=== PATIENT | male | born 1990 | race Caucasian/White ===

== ENCOUNTER 2024-04-05 18:08 | Emergency (ER) | payer OTHER, SELFPAY ==
[2024-04-05 18:09] VITALS: BP 124/89
[2024-04-05 18:26] VITALS: BP 131/83
[2024-04-05 18:45] LABS: % Basophils 0.8 % (0-2); % Eosinophils 2.7 % (0-6); % Immature Granulocytes 0.4 % (0-0.5); % Lymphocytes 16.5 % (20.5-51.1); % Monocytes 8.9 % (1.7-9.3); % Neutrophils 70.7 % (42.2-75.2); Absolute Eosinophils 0.1 10^3/uL (0-0.7); Absolute Lymphocytes 0.9 10^3/uL (1.2-3.4); Absolute Monocytes 0.5 10^3/uL (0.1-0.6); Absolute Neutrophils 3.7 10^3/uL (1.4-6.5); Hematocrit 37.9 % (39.0-52.0); Hemoglobin 13.9 g/dL (13.0-18.0); Mean Corp Hgb Conc. 36.7 g/dL (33.0-37.0); Mean Corpuscular Hgb 32.9 pg (27.0-31.0); Mean Corpuscular Volume 89.8 fL (80.0-94.0); Mean Platelet Volume 9.9 fL (7.4-10.4); Nucleated Red Blood Cells % 0 % (-); Platelet Count 153 10^3/uL (130-400); Red Blood Cell Count 4.22 10^6/uL (4.70-6.10); Red Cell Dist. Width 11.6 % (11.5-14.5); White Blood Cell Count 5.3 10^3/uL (4.8-10.8)
[2024-04-05 18:57] LABS: ALT (SGPT) 55 U/L (0-50); AST (SGOT) 67 U/L (17-59); Albumin 4.8 g/dl (3.5-5.0); Alkaline Phosphatase 95 U/L (38-126); Blood Urea Nitrogen 10 mg/dl (9-20); Calcium 9.2 mg/dl (8.4-10.2); Carbon Dioxide 19 mmol/L (22-30); Chloride 103 mmol/L (98-107); Glucose 91 mg/dl (70-99); Potassium 4.1 mmol/L (3.5-5.1); Sodium 136 mmol/L (135-145); Total Bilirubin 0.6 mg/dl (0.2-1.3); Total Protein 7.9 g/dl (6.3-8.2); eGFR > 60.00
[2024-04-05 19:00] VITALS: BP 131/82
[2024-04-05 20:00] VITALS: BP 145/89
[2024-04-05 21:00] VITALS: BP 130/107
--- NOTE | 2024-04-05 23:37 | ED.GENMED ---
History of Present Illness
General
Chief Complaint: Seizure
Source: patient, significant other and family
Exam Limitations: none
Time Seen by Provider: 04/05/24 18:19
Nursing documentation reviewed up to this point in time: agreed with
Travel History
Have you had any contact with someone who has COVID-19?: No
Do you have any symptoms of coronavirus? Fever > 100 degrees, chills, cough, shortness of breath, sore throat, loss of taste or smell, muscle aches, or headache?: No
History of Present Illness
History of Present Illness:
33-year-old male with a past medical history of seizures presents to the emergency room with his mother and girlfriend for evaluation after seizure. Patient reportedly was in the shower and girlfriend heard him fall and found him sitting in the
shower hanging over the edge of the tub. She says that he was having tonic-clonic activity and had some bleeding around his mouth. She says that the whole episode lasted about 3 minutes and afterwards he was lethargic. He since has returned to
baseline�he initially in triage had a mild headache but he says this has resolved and he now feels well with no complaints. He denies any recent illness. Denies any headache or neck pain for me. Denies any chest or abdominal pain. He says this
is typical of his seizure episodes. He admits that he has not been taking his Keppra as he is supposed to�he says that he supposed to take 750 mg twice daily but over the past few days has not taken it, he claims he forgot. Triage note mentions
something about cutting pills in half�he says that he simply missed a few doses. His last seizure was in October 2022.
Review of Systems
Review of Systems
All Other Systems: ROS reviewed and negative except as documented in HPI and ROS
Constitutional: Denies fever or chills
Respiratory: Denies trouble breathing
Cardiac: Denies chest pain
ABD/GI: Denies abdominal pain, nausea or vomiting
: Denies flank pain
Musculoskeletal: Denies neck pain or back pain
Neurological: Denies dizzy, headache, weakness or numbness
Phy Exam
Physical Exam
Physical Exam:
General: Awake, alert, oriented x3; no acute distress
Head: Normocephalic, atraumatic
Eyes: Conjunctiva normal, EOMI, pupils equal round and reactive to light bilateral
Throat: Airway intact, handling secretions, minor abrasion/bite ria on the left side of the tongue
Neck: Trachea midline, supple without meningismus
Lungs: Clear to auscultation bilaterally, no wheezing, rales, rhonchi
Heart: Regular rate and rhythm, no murmurs, gallops, or rubs�triage tachycardia improved by my assessment
Abd: Soft, non distended, nontender
Neuro: Cranial nerves intact, speech fluid without dysarthria, no motor or sensory dysfunction
Skin: no rash
Extremities: No edema in extremities, equal pulses in all extremities
Scores
Heart Failure Risk
Heart Failure Risk Score: Not Applicable
Heart Score for Chest Pain Patients
STEMI patient?: Not applicable
Withdrawal Assessment of Alcohol
Withdrawal Assessment Completed?: Not applicable
Course
Orders/Labs/Results
Orders:
Orders
04/05/24 18:13
EKG [Electrocardiogram (*1)] Urgent
Reason for Study: Tachycardia
EKG- Treatment ONCE
04/05/24 18:28
Complete Blood Count/With Diff Urgent
Comprehensive Metabolic Panel Urgent
Abnormal Lab Results
04/05/24
18:28
RBC 4.22 L 10^6/uL
(4.70-6.10)
Hct 37.9 L %
(39.0-52.0)
MCH 32.9 H pg
(27.0-31.0)
Absolute Lymphs (auto) 0.9 L 10^3/uL
(1.2-3.4)
Lymphocytes % 16.5 L %
(20.5-51.1)
Carbon Dioxide 19 L mmol/L
(22-30)
AST 67 H U/L
(17-59)
ALT 55 H U/L
(0-50)
04/05/24 18:28
04/05/24 18:28
Vital Signs
Initial and Last Documented VS:
Initial Vital Signs
Temp Pulse Resp BP Pulse Ox
36.8 C 121 18 124/89 97
04/05/24 18:09 04/05/24 18:09 04/05/24 18:09 04/05/24 18:09 04/05/24 18:09
Last Documented Vital Signs
Temp Pulse Resp BP Pulse Ox
36.8 C 103 18 130/107 96
04/05/24 18:09 04/05/24 21:15 04/05/24 21:15 04/05/24 21:00 04/05/24 21:15
MDM/Problems Addressed
Differential Diagnosis Includes:
Seizure versus syncope�history most consistent with seizure
MDM/Problems Addressed:
33-year-old male presents for evaluation after generalized tonic-clonic seizure in the setting of medication noncompliance. Total duration of seizure was approximately 3 minutes according to his girlfriend. Had a postictal period but is back to
baseline. He had tachycardia in triage but vital signs normalized by my assessment. Physical exam as above. No indication for neuroimaging�he has no signs of head trauma, while he had a mild headache during postictal period it is now completely
resolved and he has a reassuring neurologic assessment. Will check basic labs. Will monitor for recurrence. Reassess after the above.
Labs reviewed: CBC unremarkable, CMP shows very mild metabolic acidosis likely related to seizure. Mild elevated transaminases unlikely of acute clinical significance. EKG showed sinus rhythm. Will continue to monitor.
Patient monitored for 4 hours without additional seizure activity. He has no symptoms and is requesting to be discharged. I stressed with him the importance of compliance with his medication. He does not require refill he has his medication with
him here in the emergency room. He assured me that he will follow-up with his neurologist after this episode. I reinforced that he should not drive after this episode; [employer] form filed and faxed. We spoke about return precautions all questions
were answered.
Chronic conditions affecting care:
Epilepsy
*Pulse Oximetry
Patient hypoxic: no
*EKG
Interpreted by ED Provider?: Yes
Heart Rate: 98
Rate: normal
Rhythm: sinus
[place]: normal axis
Interval: normal interval
QRS Pattern: normal QRS
Ischemia: no ischemia
*Critical Care Note
Total Time (30-74mins, 75-104mins- exclusive of procedures): Not Applicable
Data Reviewed
Source: patient and family
Further Testing Considered But Not Given:
Considered CT head
ED Attending Note
-
Portions of this chart may have been created with voice recognition software.� Occasional wrong word or��sound alike� substitutions may have occurred due to the inherent limitations of voice recognition software.
Discharge Plan
Departure
Patient Disposition: Home (Routine Discharge)
Date of Disposition: 04/05/24
Time of Disposition: 22:12
Patient with high blood pressure during this ER visit?: No
Discharge Problem:
Seizure
Instructions: Seizures, Adult (DC)
Prescriptions:
No Action
levetiracetam 750 mg tablet
750 mg PO DAILY
levetiracetam 750 mg tablet
375 mg PO QPM
Patient Comments:
04/05/2024: Pt is suppsed to take 750mg BID, but has recently been taking 1/2 tab in the evening, but today took a whole tab when he got home.
Referrals:
Willian Yanez MD [Family Provider] - Follow up in 5-7 days
Stand Alone Forms: Return to Work
Activity Restrictions/Additional Instructions:
Thank you for visiting the Emergency Department at [facility].
1. Please schedule a follow up appointment as directed. Call first thing tomorrow morning to make an appointment.
2. If indicated, please take your medications as instructed and indicated on discharge paperwork.
3. If any of your symptoms do not improve, or persist, or become more severe within 6-12 hours, please return to the emergency department for further care.
4. Please return to the emergency department if you develop a headache, neck pain/stiffness, fever greater than 100.4F, chest pain, shortness of breath, persistent nausea, vomiting, slurred speech, difficulty walking, numbness/tingling, weakness,
signs of infection or any other symptoms that are worrisome to you.
Please call [phone] if you have any questions.
Interventions
Interventions:
*Risk Screen - Suicide Last Done: 04/05/24 18:30
*General Assessment Last Done: 04/05/24 18:30
*Neglect/Abuse Screening Last Done: 04/05/24 18:30
ED- Fall Risk Assessment Last Done: 04/05/24 18:31
*ED COVID-19 Vaccine History Last Done: 04/05/24 18:31
*Nursing Disposition Last Done: 04/05/24 22:17
ED- Cardiac Assessment Last Done: 04/05/24 18:32
ED- Neurological Assessment Last Done: 04/05/24 18:32
ED- Pulmonary Assessment Last Done: 04/05/24 18:32
Discharge Date and Time
Discharge Date/Time: 04/05/24 22:18
Print Language: PASHTO
== END 2024-04-05 22:18 | disposition home or self-care (01) ==
LOC: EMR 18:08
PROVIDERS: EMERGENCY PHYSICIAN Emergency Medicine; FAMILY PHYSICIAN Family Medicine
DX: G40.909 Epilepsy, unspecified, not intractable, without status epilepticus (principal)
CPT/HCPCS: 99283; 80053; 85025; 93005